=== PATIENT | male | born 1990 | race Caucasian/White ===

== ENCOUNTER → 2016-10-23 | Outpatient (CLI) | payer OTHER ==
--- NOTE | 2016-10-24 10:00 | XR ---
EXAMINATION TYPE: XR scoliosis survey DATE OF EXAM: 10/23/2016 1:46 PM COMPARISON: 12/15/2014 HISTORY: Scoliosis TECHNIQUE: 2 views of the thoracolumbar spine submitted. FINDINGS: Exam limited due to extreme rotatory scoliosis. Images cannot be included on one film and t herefore assessment is limited. Scoliosis estimated approximately 82 degrees. IMPRESSION: 1. Limited exam due to severe scoliotic curvature. Measures approximately 82 degrees
--- NOTE | 2016-10-24 10:02 | XR ---
EXAMINATION TYPE: XR Hip Bilateral and AP pelvis DATE OF EXAM: 10/23/2016 1:46 PM COMPARISON: 12/15/2014 HISTORY: TECHNIQUE: A single AP view of the pelvis is obtained. Two views of the hip are obtained. FINDINGS: Exam of right hip is technically limited due to positioning. There does appear to be concentric narro wing the joint space. Osseous structures intact. No dislocation of the femoral head seen. Exam of the left hip is compatible with for acetabular dysplasia with subluxation of the femoral head . Correlate clinically given the limitation of the exam. IMPRESSION: 1. Significant acetabular dysplasia on the left with deformity of the femur and subluxation. 2. Likely a mild degree of acetabular dysplasia on the right with post arthritic changes but no sublu xation or dislocation.
== END | disposition home or self-care (01) ==
LOC: RADXRYALE 11:50
PROVIDERS: ATTEND Physical Medicine & Rehabilitation
DX: S73.002A Unspecified subluxation of left hip, initial encounter (principal); Q65.89 Other specified congenital deformities of hip; M41.85 Other forms of scoliosis, thoracolumbar region; G80.0 Spastic quadriplegic cerebral palsy; Z99.3 Dependence on wheelchair
CPT/HCPCS: 72082; 73521

== ENCOUNTER → 2019-09-26 | Outpatient (CLI) | payer OTHER ==
--- NOTE | 2019-09-26 11:25 | XR ---
EXAMINATION TYPE: XR chest 1V DATE OF EXAM: 09/26/2019 COMPARISON: 09/18/2014 HISTORY: Coughing and wheezing TECHNIQUE: Single frontal view of the chest is obtained. FINDINGS: No pneumothorax. No pleural effusion.. Severe scoliotic curvature of the spine. No overt f ailure. No pneumothorax. Diffuse osteopenia. Subsegmental changes along the radial margin the right l ower lobe. IMPRESSION: Basilar atelectasis versus early infiltrate.
== END | disposition home or self-care (01) ==
LOC: RADXRYALE 10:26
PROVIDERS: ATTEND Physician Assistant Medical
DX: J18.0 Bronchopneumonia, unspecified organism (principal)
CPT/HCPCS: 71045

== ENCOUNTER → 2021-03-06 | Outpatient (CLI) | payer OTHER ==
--- NOTE | 2021-03-06 16:15 | XR ---
Abdomen HISTORY: Distention, incontinence, R1 40 Frontal view the abdomen submitted on 2 images There is a marked scoliotic curvature. 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 Bon e mineralization is reduced. There is a PEG tube in place. Retained fecal debris present within the r ectum. No evident bowel obstruction or pneumoperitoneum. Lung bases not entirely included on the exam on the left. IMPRESSION: Scoliosis, correlate for underlying cerebral palsy. Additional findings above.
== END | disposition home or self-care (01) ==
LOC: RADXRYALE 15:09
PROVIDERS: ATTEND Physician Assistant Medical
DX: M41.9 Scoliosis, unspecified (principal); Z93.1 Gastrostomy status
CPT/HCPCS: 74018